=== PATIENT | female | born 1980 | race American Indian/Alaskan Native ===

== ENCOUNTER 2017-09-03 14:12 | Emergency (ER) | payer SELFPAY ==
[2017-09-03 14:16] VITALS: BP 118/76
[2017-09-03] MEDS ORDERED: ASPIRIN PO ONE (14:16)
[2017-09-03] MEDS ORDERED: NACL 0.9% 1000 ML 1,000 ML IV ONE (14:29)
[2017-09-03] MEDS ORDERED: ZOFRAN IV ONE (14:29)
[2017-09-03] MEDS ORDERED: PEPCID IV ONE (14:29)
--- NOTE | 2017-09-03 14:31 | Emergency Department Report ---
Blank Doc - Documentation Documentation: Patient is a 36-year-old female who has a past history of coronary disease who has [address] is presenting today with nausea vomiting diarrhea. Patient states that she has had these symptoms for 4 days. Patient states she has some discomfort in the chest as a burning sensation. He denies any shortness of breath cough congestion at this time. Patient states she has some generalized abdominal crampiness. Focused physical exam patient's heart and lungs are normal limits. Abdomen is soft and is moderately tend with no rebound or guarding. Patient has normal bowel sounds. The patient will be moved to a treatment room for IV fluids and meds for symptomatic relief will check electrolytes. Er
--- NOTE | 2017-09-03 15:10 | XRay Report ---
ABDOMINAL SERIES: History: Nausea and vomiting with chest pain. Erect chest film shows no acute or significant changes involving the heart or lung yates. There is no evidence of free air beneath the diaphragms. The gas pattern within the abdomen is unremarkable. There is no evidence of bowel dilatation, significant air-fluid levels, or masses. Organ shadows are unremarkable. Cholecystectomy changes are noted. IMPRESSION: Abdominal series within normal limits.
--- NOTE | 2017-09-03 15:23 | Emergency Department Report ---
ED General Adult HPI - General Chief complaint: Chest Pain Stated complaint: CHEST PAIN AND STOMACH VIRUS Time Seen by Provider: 09/03/17 14:24 Source: patient Mode of arrival: Ambulatory Limitations: No Limitations - History of Present Illness Initial comments: This is a 36-year-old -[place]aced[place] female that presents with nausea and vomiting, diarrhea, and chest pain for 4 days. Past medical history of coronary disease who has 2 stents. He she'll reports her daughter came home afternoon with nausea and vomiting and shortly after she started feeling sick the next day. She is unable to keep liquids and solids down. When she is able to keep food down she is experiencing watery diarrhea. Patient reports discomfort as burning sensation in chest. She is also having some generalized abdominal cramping with diarrhea. She is drinking water and Gatorade but has not tried taking anything [id number] for symptoms. She denies fever, shortness of breath, cough, and congestion at this time. -: days(s) (4 days) Location: chest, abdomen Radiation: non-radiation Severity scale (0 -10): 5 Quality: aching Consistency: intermittent Improves with: none Worsens with: eating Associated Symptoms: nausea/vomiting. denies: confusion, chest pain, cough, diaphoresis, fever/chills, headaches, loss of appetite, malaise, rash, seizure, shortness of breath, syncope, weakness Treatments Prior to Arrival: none - Related Data Home Medications Medication Instructions Recorded Confirmed Last Taken Brilinta PO QDAY 10/18/15 Unknown Previous Rx's Medication Instructions Recorded Last Taken Type Aspirin [Aspirin BABY CHEW TAB] 81 mg PO QDAY #30 tab.chew 08/10/14 10/18/15 Rx Famotidine [Pepcid] 20 mg PO BID #60 tablet 10/21/15 Unknown Rx Loperamide [Imodium] 2 mg PO Q2HR PRN #15 capsule 09/03/17 Unknown Rx Ondansetron [Zofran Odt] 4 mg PO TID #15 tab.rapdis 09/03/17 Unknown Rx Allergies Allergy/AdvReac Type Severity Reaction Status Date / Time metoclopramide HCl AdvReac Vomiting Verified 06/17/13 20:27 [From Reglan] ED Review of Systems ROS: Stated complaint: CHEST PAIN AND STOMACH VIRUS Other details as noted in HPI Constitutional: denies: chills, fever Respiratory: denies: cough, shortness of breath, wheezing Cardiovascular: denies: chest pain, palpitations Gastrointestinal: abdominal pain (Generalized abdominal pain), nausea, vomiting , diarrhea. denies: constipation Neurological: denies: headache, weakness, paresthesias Psychiatric: denies: anxiety, depression ED Past Medical Hx - Past Medical History Previous Medical History?: Yes Hx Hypertension: Yes Hx Heart Attack/AMI: Yes (present Dx: NSTEMI, 3 other admission [place]) Hx Congestive Heart Failure: No Hx Diabetes: No Hx Deep Vein Thrombosis: No Hx Asthma: No Hx COPD: No - Surgical History Past Surgical History?: Yes Hx Coronary Stent: Yes Hx Open Heart Surgery: No Hx Pacemaker: No Hx Internal Defibrillator: No Hx Cholecystectomy: Yes Hx Appendectomy: No Hx Breast Surgery: No Additional Surgical History: Umbilical herniorrhaphy - Social History Smoking Status: Current Some Day Smoker Substance Use Type: Marijuana, Prescribed - Medications Home Medications: Home Medications Medication Instructions Recorded Confirmed Last Taken Type Aspirin [Aspirin BABY CHEW TAB] 81 mg PO QDAY #30 tab.chew 08/10/14 10/18/15 Rx Brilinta PO QDAY 10/18/15 Unknown History Famotidine [Pepcid] 20 mg PO BID #60 tablet 10/21/15 Unknown Rx Loperamide [Imodium] 2 mg PO Q2HR PRN #15 capsule 09/03/17 Unknown Rx Ondansetron [Zofran Odt] 4 mg PO TID #15 tab.rapdis 09/03/17 Unknown Rx ED Physical Exam - General Limitations: No Limitations General appearance: alert, in no apparent distress - ENT ENT exam: Present: mucous membranes moist, other (turbinates mildly congested). Absent: normal orophraynx (erythematous oropharynx) - Respiratory Respiratory exam: Present: normal lung sounds bilaterally. Absent: respiratory distress - Cardiovascular Cardiovascular Exam: Present: regular rate, normal rhythm. Absent: systolic murmur, diastolic murmur, rubs, gallop - GI/Abdominal GI/Abdominal exam: Present: soft, tenderness (right upper quadrant tenderness), normal bowel sounds. Absent: distended, guarding, rebound, rigid, organomegaly , mass - Neurological Exam Neurological exam: Present: alert, oriented X3 - Psychiatric Psychiatric exam: Present: normal affect, normal mood - Skin Skin exam: Present: warm, dry, intact, normal color. Absent: rash ED Course Vital Signs 09/03/17 14:13 Temperature 98.2 F Pulse Rate 78 Respiratory 18 Rate Blood Pressure 118/76 O2 Sat by Pulse 100 Oximetry ED Medical Decision Making - Lab Data Result diagrams: 09/03/17 15:20 09/03/17 15:20 - Medical Decision Making This is a 36 y.o. female that presents with nause/vomiting, diarrhea, and chest discomfort for 4 days. Patient is stable and was examined by me and Libertad Garcia. Vitals stable. Patient is in no acute distress. Obtained CMP, CBC, lipase, troponin, UA, and EKG. EKG read by Dr. Lu, normal sinus rhythm. Patient given aspirin, Pepcid, Zofran, and normal saline 1 L. Potassium low, given K- Dur 20 mg by mouth once. All other labs are unremarkable. X-ray of chest and abdomen no acute finding. Plan to start indium and zofran for gastritis. Discussed plan with patient and agreed to plan. No further questions noted by the patient. Discharged home in stable condition. Follow up with PCP in 2-3 days. Critical care attestation.: If time is entered above; I have spent that time in minutes in the direct care of this critically ill patient, excluding procedure time. ED Disposition Clinical Impression: Gastritis Qualifiers: Gastritis type: superficial Chronicity: acute Gastritis bleeding: without bleeding Qualified Code(s): K29.00 - Acute gastritis without bleeding Disposition: DC-01 TO HOME OR SELFCARE Is pt being admited?: No Does the pt Need Aspirin: No Condition: Stable Instructions: Gastritis (ED), Diet for Ulcers and Gastritis (ED) Additional Instructions: Frequent hand washing is important to reduce spread. Prompt disinfection of contaminated surfaces with household chlorine bleach- based motor vehicle dispatcher and washing of soiled clothing and bedding should be advised. If food or water is thought to be contaminated, it should be avoided. Increase fluid intake. Drinks high in sugars such as carbonated soft drinks, fruit juice, and highly sugared liquids should be avoided. Prescriptions: Loperamide [Imodium] 2 mg PO Q2HR PRN #15 capsule PRN Reason: Diarrhea Ondansetron [Zofran Odt] 4 mg PO TID #15 tab.rapdis Referrals: [facility] [Outside] - 3-5 Days [facility] [Outside] - 3-5 Days [facility] [Outside] - 3-5 Days Time of Disposition: 16:54 Print Language: CHINESE
[2017-09-03 15:43] LABS: Basophils % (Auto) 0.4 % (0.0-1.8); Eosinophils % (Auto) 1.1 % (0.0-4.3); Lymphocytes % (Auto) 24.5 % (13.4-35.0); Mean Corpuscular HGB Conc 30 % (30-34); Monocytes # (Auto) 0.5 K/mm3 (0.0-0.8); Monocytes % (Auto) 12.3 % (0.0-7.3); Platelet Count 295 K/mm3 (140-440); Red Blood Count 4.73 M/mm3 (3.65-5.03); Red Cell Distribution Width 19.1 % (13.2-15.2)
[2017-09-03 15:48] LABS: Hemoglobin 9.6 gm/dl (10.1-14.3)
[2017-09-03 15:49] LABS: Hematocrit 32.6 % (30.3-42.9); Mean Corpuscular Hemoglobin 20 pg (28-32); Mean Corpuscular Volume 69 fl (79-97)
[2017-09-03 15:50] LABS: Alanine Aminotransferase 10 units/L (7-56); BUN/Creatinine Ratio 20; Blood Urea Nitrogen 14 mg/dL (7-17); Hemolysis Index 0; Lipase 11 units/L (13-60)
[2017-09-03] MEDS ORDERED: K-DUR PO ONE (16:37)
== END 2017-09-03 17:07 | disposition home or self-care (01) ==
LOC: ED 14:12
DX: K29.70 Gastritis, unspecified, without bleeding (principal); I10 Essential (primary) hypertension; I25.2 Old myocardial infarction; F17.200 Nicotine dependence, unspecified, uncomplicated; F12.10 Cannabis abuse, uncomplicated; Z79.82 Long term (current) use of aspirin; Z95.1 Presence of aortocoronary bypass graft; Z88.8 Allergy status to other drugs, medicaments and biological substances
CPT/HCPCS: 36415; 74022; 80053; 83690; 84484; 85025; 93005; 93010; 96361; 96374; 96375; 99284; J2405; J7030

== ENCOUNTER 2018-09-18 20:05 | Emergency (ER) | payer MEDICAID ==
--- NOTE | 2018-09-18 20:15 | Event Note ---
ED Screening Note ED Screening Note: pt presents with left ankle and foot pain that began yesterday ran over by a clothing rack unsure of last tetanus never injured before PMHx [place] has stents allergy: reglan This initial assessment/diagnostic orders/clinical plan/treatment(s) is/are subject to change based on patients health status, clinical progression and re- assessment by fellow clinical providers in the ED. Further treatment and workup at subsequent clinical providers discretion. Patient/guardian urged not to elope from the ED as their condition may be serious if not clinically assessed and managed. Initial orders include: XR of the left foot and ankle
[2018-09-18] MEDS ORDERED: BOOSTRIX IM ONE (20:16)
[2018-09-18 20:22] VITALS: BP 119/69
--- NOTE | 2018-09-18 20:50 | XRay Report ---
LEFT FOOT 3 VIEWS LEFT ANKLE 3 VIEWS INDICATION: left foot ran over by clothing rack. COMPARISON: No relevant prior imaging study available. FINDINGS: Left foot: No acute fracture, dislocation, or focal soft tissue swelling. No significant degenerative changes. Left ankle: No acute fracture or dislocation is seen. There is no ankle mortise widening. No focal so ft tissue swelling. IMPRESSION: 1. No acute findings. Signer Name: Chris Cespedes MD Signed: 09/18/2018 8:46 PM Workstation Name: [email or web address]
[2018-09-18] MEDS ORDERED: ULTRAM PO ONE (23:05)
--- NOTE | 2018-09-18 23:32 | Emergency Department Report ---
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 Time Seen by Provider: 09/18/18 20:13 Source: patient Mode of arrival: Ambulatory Limitations: No Limitations - History of Present Illness Initial Comments: pt is a 37 y/o presents with left ankle and foot pain that began yesterday ran over by a clothing rack unsure of last tetanus never injured before pain is s 5/10 aching minimal swelling pt unable to ambulate secondary abrasion small less than 1 cm left foot no bleeding MD Complaint: foot injury Onset/Timin -: hour(s) Injury: Foot: Left Type of Injury: blunt Severity: moderate Severity scale (0 -10): 5 Improves With: nothing Worsens With: weight bearing, movement, palpation Context: direct blow Associated Symptoms: swelling, tingling, unable to bear weight - Related Data Home Medications Medication Instructions Recorded Confirmed Last Taken Brilinta PO QDAY 10/18/15 Unknown Previous Rx's Medication Instructions Recorded Last Taken Type Aspirin [Aspirin BABY CHEW TAB] 81 mg PO QDAY #30 tab.chew 08/10/14 10/18/15 Rx Famotidine [Pepcid] 20 mg PO BID #60 tablet 10/21/15 Unknown Rx Loperamide [Imodium] 2 mg PO Q2HR PRN #15 capsule 09/03/17 Unknown Rx Ondansetron [Zofran Odt] 4 mg PO TID #15 tab.rapdis 09/03/17 Unknown Rx Naproxen [Naprosyn TAB] 500 mg PO BID PRN #30 tablet 09/18/18 Unknown Rx Allergies Allergy/AdvReac Type Severity Reaction Status Date / Time metoclopramide HCl AdvReac Vomiting Verified 06/17/13 20:27 [From [facility]] ED Review of Systems ROS: 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 denies: back pain, arthralgia, myalgia Skin: other (small abrasion left lateral foot ). denies: rash, lesions Neurological: denies: headache, weakness, paresthesias Psychiatric: denies: anxiety, depression Hematological/Lymphatic: denies: easy bleeding, easy bruising ED Past Medical Hx - Past Medical History Previous Medical History?: Yes Hx Hypertension: Yes Hx Heart Attack/AMI: Yes (present Dx: NSTEMI, 3 other admission [place]) Hx Congestive Heart Failure: No Hx Diabetes: No Hx Deep Vein Thrombosis: No Hx Asthma: No Hx COPD: No - Surgical History Past Surgical History?: Yes Hx Coronary Stent: Yes Hx Open Heart Surgery: No Hx Pacemaker: No Hx Internal Defibrillator: No Hx Cholecystectomy: Yes Hx Appendectomy: No Hx Breast Surgery: No Additional Surgical History: Umbilical herniorrhaphy - Social History Smoking Status: Never Smoker Substance Use Type: None - Medications Home Medications: Home Medications Medication Instructions Recorded Confirmed Last Taken Type Aspirin [Aspirin BABY CHEW TAB] 81 mg PO QDAY #30 tab.chew 08/10/14 10/18/15 10/18/15 Rx Brilinta PO QDAY 10/18/15 Unknown History Famotidine [Pepcid] 20 mg PO BID #60 tablet 10/21/15 Unknown Rx Loperamide [Imodium] 2 mg PO Q2HR PRN #15 capsule 09/03/17 Unknown Rx Ondansetron [Zofran Odt] 4 mg PO TID #15 tab.rapdis 09/03/17 Unknown Rx Naproxen [Naprosyn TAB] 500 mg PO BID PRN #30 tablet 09/18/18 Unknown Rx ED Physical Exam - General Limitations: No Limitations General appearance: alert, in no apparent distress - Head Head exam: Present: atraumatic, normocephalic - Eye Eye exam: Present: normal appearance - ENT ENT exam: Present: mucous membranes moist - Neck Neck exam: Present: normal inspection, full ROM. Absent: tenderness - Respiratory Respiratory exam: Present: normal lung sounds bilaterally. Absent: respiratory distress - Cardiovascular Cardiovascular Exam: Present: regular rate, normal rhythm. Absent: systolic murmur, diastolic murmur, rubs, gallop - GI/Abdominal GI/Abdominal exam: Present: soft, distended, tenderness, normal bowel sounds. Absent: bruit, hernia - Rectal Rectal exam: Present: deferred - Extremities Exam Extremities exam: Present: normal inspection, full ROM, tenderness, normal capillary refill, joint swelling. Absent: pedal edema, calf tenderness - Expanded Lower Extremity Exam Left Foot/Toe exam: Present: full ROM, tenderness, swelling, abrasion. Absent: laceration, ecchymosis, deformity, crepidus, dislocation, erythema, amputation, puncture wound, foreign body, calcaneal tenderness, tenderness at base of 5th metatarsal, nail avulsion, subungual hematoma Neuro vascular tendon exam: Absent: pulse deficit, motor deficit, sensory deficit, tendon deficit Gait: Positive: unable to bear weight - Back Exam Back exam: Present: normal inspection, full ROM. Absent: tenderness, CVA tenderness (R), CVA tenderness (L), muscle spasm, paraspinal tenderness, vertebral tenderness, rash noted - Neurological Exam Neurological exam: Present: alert, oriented X3, CN II-XII intact, normal gait, reflexes normal. Absent: motor sensory deficit - Psychiatric Psychiatric exam: Present: normal affect, normal mood - Skin Skin exam: Present: warm, dry, intact, normal color. Absent: rash ED Course Vital Signs 09/18/18 20:14 Temperature 98.5 F Pulse Rate 62 Respiratory 18 Rate Blood Pressure 119/69 O2 Sat by Pulse 100 Oximetry ED Lower Extremity MDM - Radiology Data Radiology results: report reviewed, image reviewed xray normal no fracture - Medical Decision Making xray normal exam normal distal pulses intact pt subjectively unble to bear weight rom is intact un restricted no pain to dorsoflexion , neg thompsons test plan rigo wrap crutches nsaids rice therapy. Critical care attestation.: If time is entered above; I have spent that time in minutes in the direct care of this critically ill patient, excluding procedure time. ED Disposition Clinical Impression: Foot sprain Qualifiers: Encounter type: initial encounter Laterality: left Qualified Code(s): S93.602A - Unspecified sprain of left foot, initial encounter Disposition: TO HOME OR SELFCARE Is pt being admited?: No Does the pt Need Aspirin: No Condition: Stable Instructions: Foot Sprain (ED) Prescriptions: Naproxen [Naprosyn TAB] 500 mg PO BID PRN #30 tablet PRN Reason: pain Referrals: PRITI BLAS MD [Primary Care Provider] - 3-5 Days ELIJAH MEJIA MD [Staff Physician] - 3-5 Days Forms: Work/School Release Form(ED) Time of Disposition: 23:39
== END 2018-09-18 23:55 | disposition home or self-care (01) ==
LOC: ED 20:05
DX: S93.602A Unspecified sprain of left foot, initial encounter (principal); I10 Essential (primary) hypertension; I25.2 Old myocardial infarction; Z88.1 Allergy status to other antibiotic agents; Z79.899 Other long term (current) drug therapy; X58.XXXA Exposure to other specified factors, initial encounter; Y93.89 Activity, other specified; Y92.89 Other specified places as the place of occurrence of the external cause; Y99.8 Other external cause status
CPT/HCPCS: 90471; 90715